=== PATIENT | male | born 1955 | race Caucasian/White ===

== ENCOUNTER 2020-11-09 11:57 | Inpatient (IN) | payer MEDICAID ==
[2020-11-09] MEDS ORDERED: Nitroglycerin 0.4 MG Tab.SL SL PRN (12:01)
[2020-11-09] MEDS ORDERED: Morphine 4 MG/ML Syringe IVPUSH PRN (12:01)
[2020-11-09] MEDS ORDERED: Aspirin 81 MG Tab.Chew PO ONE (12:01)
--- NOTE | 2020-11-09 12:36 | CR ---
CHEST: Portable 11/01/2020 at 12:21 PM CLINICAL HISTORY:Chest pain COMPARISON:None FINDINGS: The heart size, pulmonary vascularity and hilar structures are normal. No infiltrate effusion or pneumothorax is seen. IMPRESSION: No acute cardiopulmonary process.
--- NOTE | 2020-11-09 13:05 | EDM.PDOC ---
ED HPI GENERAL MEDICAL PROBLEM - General Chief Complaint: Chest Pain Stated Complaint: CHEST PAIN Time Seen by Provider: 11/09/20 12:01 Source of Information: Reports: Patient, Family, RN Notes Reviewed History Limitations: Reports: No Limitations - History of Present Illness INITIAL COMMENTS - FREE TEXT/NARRATIVE: 65-year-old gentleman presents emergency department chest pressure, he states it started about 2 hours prior vomiting no shortness of breath no diaphoresis he states the pressure started just while he was sitting at the coffee table he has no significant cardiac history his father did have atrial fibrillation but no history of present of years Chest Pain Score (Numeric/FACES): 4 - Related Data Allergies Allergy/AdvReac Type Severity Reaction Status Date / Time No Known Allergies Allergy Verified 11/09/20 12:37 Home Meds: Home Meds DULoxetine [Cymbalta] 90 mg PO DAILY 11/09/20 [History] Past Medical History HEENT History: Reports: Macular Degeneration Cardiovascular History: Reports: Other (See Below) Other Cardiovascular History: rheumatic fever as a child Musculoskeletal History: Reports: Fracture Neurological History: Reports: Migraines Psychiatric History: Reports: Depression - Infectious Disease History Infectious Disease History: Reports: Chicken Pox, Hepatitis C, Measles, Mumps, Rheumatic Fever - Past Surgical History HEENT Surgical History: Reports: Tonsillectomy Social & Family History - Tobacco Use Tobacco Use Status *Q: Heavy Tobacco User Years of Tobacco use: 20 Packs/Tins Daily: 2 - Caffeine Use Caffeine Use: Reports: Coffee - Alcohol Use Days Per Week of Alcohol Use: 7 Number of Drinks Per Day: 6 Total Drinks Per Week: 42 - Recreational Drug Use Recreational Drug Use: No ED ROS GENERAL - Review of Systems Review Of Systems: See Below Constitutional: Reports: No Symptoms HEENT: Reports: No Symptoms Respiratory: Reports: No Symptoms Cardiovascular: Reports: Chest Pain GI/Abdominal: Reports: No Symptoms ED EXAM, GENERAL - Physical Exam Exam: See Below Exam Limited By: No Limitations General Appearance: Alert, WD/WN, No Apparent Distress Respiratory/Chest: No Respiratory Distress, Lungs Clear, Normal Breath Sounds, No Accessory Muscle Use, Chest Non-Tender Cardiovascular: Regular Rate, Rhythm, No Murmur GI/Abdominal: Soft, Non-Tender Extremities: No Pedal Edema #1 Interpretation EKG Date: 11/09/20 Time: 13:05 Rhythm: NSR [place]: Normal P-Wave: Present QRS: Normal ST-T: Normal QT: Normal Comparison: NA - No Prior EKG Course - Vital Signs Last Recorded V/S: Last Vital Signs Temp 95 F L 11/09/20 12:03 Pulse 104 H 11/09/20 12:43 Resp 19 11/09/20 12:43 BP 141/87 H 11/09/20 12:43 Pulse Ox 98 11/09/20 12:43 - Orders/Labs/Meds Orders: Active Orders 24 hr Category Date Time Status Cardiac Monitoring [RC] .As Directed Care 11/09/20 12:01 Active Cardiac Monitoring [RC] STAT Care 11/09/20 14:31 Active Communication Order [RC] Per Unit Routine Care 11/09/20 14:31 Active Communication Order [RC] Per Unit Routine Care 11/09/20 14:31 Active Oxygen Therapy [RC] ASDIRECTED Care 11/09/20 14:31 Active Nothing Per Oral Diet [DIET] Diet 11/09/20 Dinner Active CORONAVIRUS COVID-19 RAPID [MOLEC] Urgent Lab 11/09/20 14:33 Ordered TROPONIN I [CHEM] Stat Lab 11/09/20 20:00 Ordered Heparin Sodium/D5W [Heparin 25,000 Units in D5W 500 ML] Med 11/09/20 14:45 Active 25,000 units in 500 ml IV TITRATE Morphine Med 11/09/20 12:01 Active 4 mg IVPUSH Q10M PRN Nitroglycerin [Nitrostat] Med 11/09/20 12:01 Active 0.4 mg SL Q5M PRN EKG 12 Lead [EK] Stat Ther 11/09/20 12:02 Ordered Medication Orders Heparin Sodium/Dextrose (Heparin 25,000 Units In D5w 500 Ml) 25,000 units in 500 mls @ 17.853 mls/hr IV TITRATE RODNEY; Protocol Morphine Sulfate (Morphine 4 Mg/Ml Syringe) 4 mg IVPUSH Q10M PRN PRN Reason: Chest Pain Stop: 11/10/20 12:01 Nitroglycerin (Nitroglycerin 0.4 Mg Tab.Sl) 0.4 mg SL Q5M PRN PRN Reason: Chest Pain Stop: 11/10/20 12:01 Labs: Laboratory Tests 11/09/20 11/09/20 11/09/20 Range/Units 12:01 12:01 12:01 WBC 9.2 (4.5-11.0) K/uL RBC 4.48 (4.30-5.90) M/uL Hgb 14.5 (12.0-15.0) g/dL Hct 42.9 (40.0-54.0) % MCV 96 (80-98) fL MCH 32 H (27-31) pg MCHC 34 (32-36) % Plt Count 300 (150-400) K/uL Neut % (Auto) 68.4 H (36-66) % Lymph % (Auto) 23.4 L (24-44) % [place] % (Auto) 6.6 H (2-6) % Eos % (Auto) 0.9 L (2-4) % Baso % (Auto) 0.7 (0-1) % PT 10.2 (9.2-10.6) sec INR 1.0 APTT 26.7 (21.4-31.8) sec Sodium 138 L (140-148) mmol/L Potassium 4.0 (3.6-5.2) mmol/L Chloride 102 (100-108) mmol/L Carbon Dioxide 26 (21-32) mmol/L Anion Gap 14.0 (5.0-14.0) mmol/L BUN 10 (7-18) mg/dL Creatinine 1.1 (0.8-1.3) mg/dL Est Cr Clr Drug Dosing 66.50 mL/min Estimated GFR (MDRD) > 60 (>60) Glucose 157 H (74-106) mg/dL Calcium 8.4 L (8.5-10.1) mg/dL Total Bilirubin 0.5 (0.2-1.0) mg/dL AST 75 H (15-37) U/L ALT 40 (12-78) U/L Alkaline Phosphatase 99 (46-116) U/L Troponin I < 0.017 (0.000-0.056) ng/mL Total Protein 6.9 (6.4-8.2) g/dL Albumin 3.6 (3.4-5.0) g/dL Globulin 3.3 (2.3-3.5) g/dL Albumin/Globulin Ratio 1.1 L (1.2-2.2) 11/09/20 Range/Units 13:57 WBC (4.5-11.0) K/uL RBC (4.30-5.90) M/uL Hgb (12.0-15.0) g/dL Hct (40.0-54.0) % MCV (80-98) fL MCH (27-31) pg MCHC (32-36) % Plt Count (150-400) K/uL Neut % (Auto) (36-66) % Lymph % (Auto) (24-44) % [place] % (Auto) (2-6) % Eos % (Auto) (2-4) % Baso % (Auto) (0-1) % PT (9.2-10.6) sec INR APTT (21.4-31.8) sec Sodium (140-148) mmol/L Potassium (3.6-5.2) mmol/L Chloride (100-108) mmol/L Carbon Dioxide (21-32) mmol/L Anion Gap (5.0-14.0) mmol/L BUN (7-18) mg/dL Creatinine (0.8-1.3) mg/dL Est Cr Clr Drug Dosing mL/min Estimated GFR (MDRD) (>60) Glucose (74-106) mg/dL Calcium (8.5-10.1) mg/dL Total Bilirubin (0.2-1.0) mg/dL AST (15-37) U/L ALT (12-78) U/L Alkaline Phosphatase (46-116) U/L Troponin I 0.150 H* (0.000-0.056) ng/mL Total Protein (6.4-8.2) g/dL Albumin (3.4-5.0) g/dL Globulin (2.3-3.5) g/dL Albumin/Globulin Ratio (1.2-2.2) Meds: Medications Generic Name Dose Route Start Last Admin Trade Name Freq PRN Reason Stop Dose Admin Heparin Sodium/Dextrose 25,000 units in 500 mls @ 17.853 mls/hr 11/09/20 14:45 Heparin 25,000 Units In D5w 500 Ml IV TITRATE RODNEY Protocol 12 UNITS/KG/HR Morphine Sulfate 4 mg 11/09/20 12:01 Morphine 4 Mg/Ml Syringe IVPUSH 11/10/20 12:01 Q10M PRN Chest Pain Nitroglycerin 0.4 mg 11/09/20 12:01 Nitroglycerin 0.4 Mg Tab.Sl SL 11/10/20 12:01 Q5M PRN Chest Pain Discontinued Medications Generic Name Dose Route Start Last Admin Trade Name Rj PRN Reason Stop Dose Admin Aspirin 324 mg 11/09/20 12:01 11/09/20 12:39 Aspirin 81 Mg Tab.Chew PO 11/09/20 12:02 324 mg ONETIME ONE Administration Heparin Sodium (Porcine) 4,000 units 11/09/20 14:31 Heparin Sodium 5,000 Units/Ml Vial IVPUSH 11/09/20 14:32 ONETIME ONE Ticagrelor 180 mg 11/09/20 14:31 Ticagrelor 90 Mg Tab PO 11/09/20 14:32 ONETIME ONE - Re-Assessments/Exams Free Text/Narrative Re-Assessment/Exam: 11/09/20 14:38 Second troponin was elevated I did contact [facility] at [address] him on the list possibly tomorrow immediately giving him the morning. Contacted [facility] facilities no beds available at that time. Therefore he will stay in the emergency department be treated as such on oracle specialist he has received aspirin he will receive Brilinta heparin bolus and placed on heparin drip he is chest pain-free at this time we will continue to monitor his symptoms accordingly troponin every 6 hours Departure - Departure Time of Disposition: 14:49 Disposition: Refer to Observation Condition: Fair Clinical Impression: Non-STEMI (non-ST elevated myocardial infarction) Referrals: PCP,Unknown [Primary Care Provider] - Forms: ED Department Discharge Sepsis Event Note (ED) - Evaluation Sepsis Screening Result: No Definite Risk - Focused Exam Vital Signs: Vital Signs Temp Pulse Resp BP Pulse Ox 11/09/20 12:43 104 H 19 141/87 H 98 11/09/20 12:13 105 H 24 H 135/80 99 11/09/20 12:03 95 F L 118 H 23 H 174/102 H 99 - My Orders Last 24 Hours: My Active Orders 11/09/20 12:01 Cardiac Monitoring [RC] .As Directed Morphine 4 mg IVPUSH Q10M PRN Nitroglycerin [Nitrostat] 0.4 mg SL Q5M PRN 11/09/20 12:02 EKG 12 Lead [EK] Stat 11/09/20 14:31 Cardiac Monitoring [RC] STAT Communication Order [RC] Per Unit Routine Communication Order [RC] Per Unit Routine Oxygen Therapy [RC] ASDIRECTED 11/09/20 14:33 CORONAVIRUS COVID-19 RAPID [MOLEC] Urgent 11/09/20 14:45 Heparin Sodium/D5W [Heparin 25,000 Units in D5W 500 ML] 25,000 units in 500 ml IV TITRATE 11/09/20 Dinner Nothing Per Oral Diet [DIET] 11/09/20 20:00 TROPONIN I [CHEM] Stat - Assessment/Plan Last 24 Hours: My Active Orders 11/09/20 12:01 Cardiac Monitoring [RC] .As Directed Morphine 4 mg IVPUSH Q10M PRN Nitroglycerin [Nitrostat] 0.4 mg SL Q5M PRN 11/09/20 12:02 EKG 12 Lead [EK] Stat 11/09/20 14:31 Cardiac Monitoring [RC] STAT Communication Order [RC] Per Unit Routine Communication Order [RC] Per Unit Routine Oxygen Therapy [RC] ASDIRECTED 11/09/20 14:33 CORONAVIRUS COVID-19 RAPID [MOLEC] Urgent 11/09/20 14:45 Heparin Sodium/D5W [Heparin 25,000 Units in D5W 500 ML] 25,000 units in 500 ml IV TITRATE 11/09/20 Dinner Nothing Per Oral Diet [DIET] 11/09/20 20:00 TROPONIN I [CHEM] Stat Plan: Assessment Acuity = acute Site and laterality = non-ST elevation myocardial infarction Etiology = probable underlying coronary artery disease Manifestations = none Location of injury = Home Lab values = CBC CMP unremarkable troponin initially less than 0.017 elevated 0.15, EKG no acute changes chest x-ray unremarkable Plan Have started below that he did receive aspirin he was seen heparin bolus with drip he is chest pain-free at this time because of him to a facility with cardiac services he is going to remain here in the ICU discussed case with hospitalist on-call at 1450 kindly agreed come evaluate patient emergency department for admission hopefully he will be transferred to [facility] tomorrow This note was dictated using [employer] voice recognition software please call with any questions on syntax or grammar.
[2020-11-09] MEDS ORDERED: Ticagrelor 90 MG Tab PO ONE (14:31)
[2020-11-09] MEDS ORDERED: Heparin Sodium 5,000 Units/ML Vial IVPUSH ONE ×2 (14:31→23:56)
--- NOTE | 2020-11-09 15:05 | PCM.HP.2 ---
H&P History of Present Illness - General Date of Service: 11/09/20 Admit Problem/Dx: Admission Diagnosis/Problem Admission Diagnosis/Problem Myocardial infarction Source of Information: Patient, Provider, RN Notes Reviewed History Limitations: Reports: No Limitations - History of Present Illness Initial Comments - Free Text/Narative: Mr. Brown is a 65-year-old gentleman who was admitted through the emergency department with chest pain secondary to a non-ST segment elevation myocardial infarction. This morning he experienced pain in his upper chest radiating to both shoulders associated with symptoms of shortness of breath, nausea, and lightheadedness. He thinks there was also mild diaphoresis. Symptoms started about 9:30 in the morning, he went to the walk-in clinic but was immediately referred to the emergency department. On initial presentation was noted to have a mild sinus tachycardia. Pain resolved spontaneously after about 2 hours. Initial troponin level was normal, follow-up troponin elevated at 0.15. No acute ST segment changes were noted on the EKG. Over the past few weeks he has noted similar pain although not as intense with activity and resolving with rest. His cholesterol status is unknown. He has a [id number] smoking history, but denies a family history of coronary artery disease and also denies a personal history of hypertension and diabetes. He has had no recurrence of his pain while in the emergency department. He has received a bolus of IV heparin and has been started on a continuous drip of heparin. He has received 325 mg of aspirin and a bolus dose of Brilinta. Chest Pain Score (Numeric/FACES): 4 - Related Data Allergies/Adverse Reactions: Allergies Allergy/AdvReac Type Severity Reaction Status Date / Time No Known Allergies Allergy Verified 11/09/20 12:37 Home Medications: Home Meds DULoxetine [Cymbalta] 90 mg PO DAILY 11/09/20 [History] Past Medical History HEENT History: Reports: Macular Degeneration Cardiovascular History: Reports: Other (See Below) Other Cardiovascular History: rheumatic fever as a child Musculoskeletal History: Reports: Fracture Neurological History: Reports: Migraines Psychiatric History: Reports: Depression - Infectious Disease History Infectious Disease History: Reports: Chicken Pox, Hepatitis C, Measles, Mumps, Rheumatic Fever - Past Surgical History HEENT Surgical History: Reports: Tonsillectomy Social & Family History - Tobacco Use Tobacco Use Status *Q: Heavy Tobacco User Years of Tobacco use: 20 Packs/Tins Daily: 2 - Caffeine Use Caffeine Use: Reports: Coffee - Alcohol Use Days Per Week of Alcohol Use: 7 Number of Drinks Per Day: 6 Total Drinks Per Week: 42 - Recreational Drug Use Recreational Drug Use: No H&P Review of Systems - Review of Systems: Review Of Systems: See Below General: Reports: No Symptoms HEENT: Reports: No Symptoms Pulmonary: Reports: Shortness of Breath. Denies: Wheezing, Pleuritic Chest Pain, Cough, Sputum Cardiovascular: Reports: Chest Pain, Dyspnea on Exertion, Lightheadedness. Denies: Orthopnea, PND, Edema Gastrointestinal: Reports: Nausea. Denies: Abdominal Pain, Constipation, Diarrhea, Decreased Appetite, Difficulty Swallowing, Distension, Hematemesis, Hematochezia, Melena, Vomiting Genitourinary: Reports: No Symptoms Musculoskeletal: Reports: No Symptoms Skin: Reports: No Symptoms Psychiatric: Reports: No Symptoms Neurological: Reports: No Symptoms Hematologic/Lymphatic: Reports: No Symptoms Immunologic: Reports: No Symptoms Exam - Exam Exam: See Below - Vital Signs Vital Signs: Last Vital Signs Temp 95 F L 11/09/20 12:03 Pulse 104 H 11/09/20 12:43 Resp 19 11/09/20 12:43 BP 141/87 H 11/09/20 12:43 Pulse Ox 98 11/09/20 12:43 Weight: 164 lb - Exam Quality Assessment: DVT Prophylaxis General: Alert, Oriented, Cooperative HEENT: Conjunctiva Clear, Hearing Intact, Mucosa Moist & [place], Normal Nasal Septum, Posterior Pharynx Clear, Pupils Equal Neck: Supple, Trachea Midline, +2 Carotid Pulse wo Bruit Lungs: Clear to Auscultation, Normal Respiratory Effort Cardiovascular: Regular Rate, Regular Rhythm, Normal S1, Normal S2. No: Systolic Murmur, Diastolic Murmur GI/Abdominal Exam: Soft, Non-Tender, No Organomegaly, No Distention Back Exam: Normal Inspection, Full Range of Motion Extremities: Non-Tender, No Pedal Edema Skin: Warm, Dry, Intact Neurological: Cranial Nerves Intact, Strength Equal Bilateral, Normal Speech, Normal Tone, Sensation Intact. No: Focal Deficit Neuro Extensive - Mental Status: Alert, Oriented x3, Normal Mood/Affect, Normal Cognition, Memory Intact - Patient Data Lab Results Last 24 hrs: Laboratory Results - last 24 hr 11/09/20 11/09/20 11/09/20 Range/Units 12:01 12:01 12:01 WBC 9.2 (4.5-11.0) K/uL RBC 4.48 (4.30-5.90) M/uL Hgb 14.5 (12.0-15.0) g/dL Hct 42.9 (40.0-54.0) % MCV 96 (80-98) fL MCH 32 H (27-31) pg MCHC 34 (32-36) % Plt Count 300 (150-400) K/uL Neut % (Auto) 68.4 H (36-66) % Lymph % (Auto) 23.4 L (24-44) % [place] % (Auto) 6.6 H (2-6) % Eos % (Auto) 0.9 L (2-4) % Baso % (Auto) 0.7 (0-1) % PT 10.2 (9.2-10.6) sec INR 1.0 APTT 26.7 (21.4-31.8) sec Sodium 138 L (140-148) mmol/L Potassium 4.0 (3.6-5.2) mmol/L Chloride 102 (100-108) mmol/L Carbon Dioxide 26 (21-32) mmol/L Anion Gap 14.0 (5.0-14.0) mmol/L BUN 10 (7-18) mg/dL Creatinine 1.1 (0.8-1.3) mg/dL Est Cr Clr Drug Dosing 66.50 mL/min Estimated GFR (MDRD) > 60 (>60) Glucose 157 H (74-106) mg/dL Calcium 8.4 L (8.5-10.1) mg/dL Total Bilirubin 0.5 (0.2-1.0) mg/dL AST 75 H (15-37) U/L ALT 40 (12-78) U/L Alkaline Phosphatase 99 (46-116) U/L Troponin I < 0.017 (0.000-0.056) ng/mL Total Protein 6.9 (6.4-8.2) g/dL Albumin 3.6 (3.4-5.0) g/dL Globulin 3.3 (2.3-3.5) g/dL Albumin/Globulin Ratio 1.1 L (1.2-2.2) 11/09/20 Range/Units 13:57 WBC (4.5-11.0) K/uL RBC (4.30-5.90) M/uL Hgb (12.0-15.0) g/dL Hct (40.0-54.0) % MCV (80-98) fL MCH (27-31) pg MCHC (32-36) % Plt Count (150-400) K/uL Neut % (Auto) (36-66) % Lymph % (Auto) (24-44) % [place] % (Auto) (2-6) % Eos % (Auto) (2-4) % Baso % (Auto) (0-1) % PT (9.2-10.6) sec INR APTT (21.4-31.8) sec Sodium (140-148) mmol/L Potassium (3.6-5.2) mmol/L Chloride (100-108) mmol/L Carbon Dioxide (21-32) mmol/L Anion Gap (5.0-14.0) mmol/L BUN (7-18) mg/dL Creatinine (0.8-1.3) mg/dL Est Cr Clr Drug Dosing mL/min Estimated GFR (MDRD) (>60) Glucose (74-106) mg/dL Calcium (8.5-10.1) mg/dL Total Bilirubin (0.2-1.0) mg/dL AST (15-37) U/L ALT (12-78) U/L Alkaline Phosphatase (46-116) U/L Troponin I 0.150 H* (0.000-0.056) ng/mL Total Protein (6.4-8.2) g/dL Albumin (3.4-5.0) g/dL Globulin (2.3-3.5) g/dL Albumin/Globulin Ratio (1.2-2.2) Result Diagrams: 11/09/20 12:01 11/09/20 12:01 Sepsis Event Note - Evaluation Sepsis Screening Result: No Definite Risk - Focused Exam Vital Signs: Vital Signs Temp Pulse Resp BP Pulse Ox 11/09/20 12:43 104 H 19 141/87 H 98 11/09/20 12:13 105 H 24 H 135/80 99 11/09/20 12:03 95 F L 118 H 23 H 174/102 H 99 *Q Meaningful Use (ADM) - VTE *Q VTE Pharmacological Contraindications *Q: High INR Value - VTE Risk Assess *Q Each Risk Factor Represents 1 Point: Acute myocardial infarction Total Score 1 Point Risk Factors: 1 Each Risk Factor Represents 2 Points: Age 60 - 74 Years Total Score 2 Point Risk Factors: 2 Each Risk Factor Represents 3 Points: None Total Score 3 Point Risk Factors: 0 Each Risk Factor Represents 5 Points: None Total Score 5 Point Risk Factors: 0 Venous Thromboembolism Risk Factor Score *Q: 3 Problem List Initiated/Reviewed/Updated: Yes Orders Last 24hrs: Active Orders 24 hr Category Date Time Status Patient Status Manage Transfer [TRANSFER] Routine ADT 11/09/20 14:56 Ordered Cardiac Monitoring [RC] .As Directed Care 11/09/20 12:01 Active Cardiac Monitoring [RC] STAT Care 11/09/20 14:31 Active Communication Order [RC] Per Unit Routine Care 11/09/20 14:31 Active Communication Order [RC] Per Unit Routine Care 11/09/20 14:31 Active Oxygen Therapy [RC] ASDIRECTED Care 11/09/20 14:31 Active Nothing Per Oral Diet [DIET] Diet 11/09/20 Dinner Active CORONAVIRUS COVID-19 RAPID [MOLEC] Urgent Lab 11/09/20 14:33 Ordered TROPONIN I [CHEM] Stat Lab 11/09/20 20:00 Ordered Heparin Sodium/D5W [Heparin 25,000 Units in D5W 500 ML] Med 11/09/20 14:45 Active 25,000 units in 500 ml IV TITRATE Morphine Med 11/09/20 12:01 Active 4 mg IVPUSH Q10M PRN Nitroglycerin [Nitrostat] Med 11/09/20 12:01 Active 0.4 mg SL Q5M PRN Resuscitation Status Routine Resus Stat 11/09/20 15:00 Ordered EKG 12 Lead [EK] Stat Ther 11/09/20 12:02 Ordered Medication Orders Heparin Sodium/Dextrose (Heparin 25,000 Units In D5w 500 Ml) 25,000 units in 500 mls @ 17.853 mls/hr IV TITRATE RODNEY; Protocol Morphine Sulfate (Morphine 4 Mg/Ml Syringe) 4 mg IVPUSH Q10M PRN PRN Reason: Chest Pain Stop: 11/10/20 12:01 Nitroglycerin (Nitroglycerin 0.4 Mg Tab.Sl) 0.4 mg SL Q5M PRN PRN Reason: Chest Pain Stop: 11/10/20 12:01 Assessment/Plan Comment:: ASSESSMENT AND PLAN NON-ST SEGMENT ELEVATION MYOCARDIAL INFARCTION-2 hours of upper chest pain radiating to both shoulders this morning. History of similar symptoms with exertion over the past several weeks. Initial troponin level was normal, 2-hour follow-up elevated at 0.15. His main risk factor is a 56-kuxs-oagn smoking history, cholesterol status is unknown. He has been pain-free while in the emergency department with no further symptoms of chest pain. -Bolus dose of heparin given in the emergency department, now on continuous infusion, continue per protocol -Brilinta 180 mg given in the emergency department, continue 90 mg every 12 hours -Aspirin 324 mg given in the emergency department, continue 81 mg p.o. daily -Serial troponin levels -Crestor 20 mg p.o. nightly -Lipid profile in a.m. -N.p.o. after midnight -Plan transfer to [facility] when a bed is available -Encourage smoking cessation MAINTENANCE ISSUES -DVT prophylaxis; heparin as above -GI prophylaxis; not indicated -[place]zagu[place]re catheter; not indicated -Nutrition; cardiac diet, n.p.o. after midnight CODE STATUS-FULL CODE ADMISSION STATUS-patient will be admitted to inpatient status, expect at least a 2 night hospital stay for evaluation and management of problems as outlined above. At the time of this admission I do not reasonably expected evaluation and management of this problem will require more than a 96 hour hospital stay. DISPOSITION-anticipate discharge to home after the hospital stay. PRIMARY CARE PROVIDER-Dr. Gordon - Mortality Measure Prognosis:: Good
[2020-11-09] MEDS: Heparin Sodium/D5W 25,000 UNITS/500 ML BAG IV SCH (15:15)
[2020-11-09] MEDS ORDERED: Polyethylene Glycol 3350 Powder 17 GM Packet PO PRN (16:04)
[2020-11-09] MEDS ORDERED: Sodium Chloride 0.9% 10 ML Syringe FLUSH PRN (16:04)
[2020-11-09] MEDS ORDERED: Ondansetron 4 MG/2 ML SDV IV PRN (16:04)
[2020-11-09] MEDS ORDERED: Morphine 2 MG/ML SYRINGE IVPUSH PRN (16:04)
[2020-11-09] MEDS: Nicotine 21 MG/24 Hr Patch TRDERM SCH (18:30)
[2020-11-09] MEDS: Ticagrelor 90 MG Tab PO SCH (20:49)
[2020-11-09] MEDS: Rosuvastatin 10 MG Tab PO SCH (20:49)
[2020-11-10] MEDS ORDERED: Heparin Sodium 5,000 Units/ML Vial IVPUSH ONE (07:33)
[2020-11-10] MEDS: Ticagrelor 90 MG Tab PO SCH ×2 (08:49→21:39)
[2020-11-10] MEDS: Acetaminophen 325 MG Tab PO PRN ×2 (08:49→14:30)
[2020-11-10] MEDS: Aspirin 81 MG Tab.Chew PO SCH (08:49)
[2020-11-10] MEDS: Nicotine 21 MG/24 Hr Patch TRDERM SCH (08:50)
[2020-11-10] MEDS: DULoxetine 30 MG Cap PO SCH (08:50)
[2020-11-10] MEDS ORDERED: Non-Formulary Medication 1 Each (Duloxetine [Cymbalta] 60 MG Cap) PO SCH (09:00)
[2020-11-10] MEDS: Heparin Sodium/D5W 25,000 UNITS/500 ML BAG IV SCH (14:33)
--- NOTE | 2020-11-10 15:31 | PCM.PN ---
- General Info Date of Service: 11/10/20 Subjective Update: Mr. Brown has been stable through the night and during the first part of the day today. He denies any symptoms of chest pain or pressure. Troponin level peaked last night at 0.59 and has been lower this morning and again this afternoon. He remains on IV heparin pending transfer for cardiac evaluation. No beds currently available but hopefully he will be able to be sent to [facility] later today. Functional Status: Reports: Tolerating Diet, Urinating - Review of Systems General: Reports: No Symptoms Pulmonary: Reports: No Symptoms Cardiovascular: Reports: No Symptoms Gastrointestinal: Reports: No Symptoms Genitourinary: Reports: No Symptoms - Patient Data Vitals - Most Recent: Last Vital Signs Temp 97.7 F 11/10/20 14:43 Pulse 92 11/10/20 14:43 Resp 22 H 11/10/20 14:43 BP 166/106 H 11/10/20 14:43 Pulse Ox 100 11/10/20 14:43 Weight - Most Recent: 173 lb 4.8 oz I&O - Last 24 Hours: Intake & Output 11/10/20 11/10/20 11/10/20 06:59 14:59 22:59 Intake Total 225 300 Output Total 900 850 Balance -675 550 Lab Results Last 24 Hours: Laboratory Results - last 24 hr 11/09/20 11/09/20 11/09/20 Range/Units 15:47 20:00 23:21 WBC (4.5-11.0) K/uL RBC (4.30-5.90) M/uL Hgb (12.0-15.0) g/dL Hct (40.0-54.0) % MCV (80-98) fL MCH (27-31) pg MCHC (32-36) % Plt Count (150-400) K/uL Neut % (Auto) (36-66) % Lymph % (Auto) (24-44) % [facility] % (Auto) (2-6) % Eos % (Auto) (2-4) % Baso % (Auto) (0-1) % APTT 40.5 H (21.4-31.8) sec Sodium (140-148) mmol/L Potassium (3.6-5.2) mmol/L Chloride (100-108) mmol/L Carbon Dioxide (21-32) mmol/L Anion Gap (5.0-14.0) mmol/L BUN (7-18) mg/dL Creatinine (0.8-1.3) mg/dL Est Cr Clr Drug Dosing mL/min Estimated GFR (MDRD) (>60) Glucose (74-106) mg/dL Calcium (8.5-10.1) mg/dL Magnesium (1.8-2.4) mg/dL Troponin I 0.590 H* (0.000-0.056) ng/mL Triglycerides (15-150) mg/dL Cholesterol (0-200) mg/dL LDL Cholesterol Direct (0-100) mg/dL HDL Cholesterol (40-60) mg/dL SARS CoV-2 RNA Rapid TEN Negative 11/10/20 11/10/20 11/10/20 Range/Units 05:26 05:26 06:32 WBC 10.2 (4.5-11.0) K/uL RBC 4.35 (4.30-5.90) M/uL Hgb 14.4 (12.0-15.0) g/dL Hct 41.0 (40.0-54.0) % MCV 94 (80-98) fL MCH 33 H (27-31) pg MCHC 35 (32-36) % Plt Count 275 (150-400) K/uL Neut % (Auto) 74.9 H (36-66) % Lymph % (Auto) 15.5 L (24-44) % [facility] % (Auto) 8.1 H (2-6) % Eos % (Auto) 1.1 L (2-4) % Baso % (Auto) 0.4 (0-1) % APTT 47.1 H (21.4-31.8) sec Sodium 136 L (140-148) mmol/L Potassium 3.6 (3.6-5.2) mmol/L Chloride 101 (100-108) mmol/L Carbon Dioxide 27 (21-32) mmol/L Anion Gap 11.6 (5.0-14.0) mmol/L BUN 10 (7-18) mg/dL Creatinine 0.9 (0.8-1.3) mg/dL Est Cr Clr Drug Dosing 84.01 mL/min Estimated GFR (MDRD) > 60 (>60) Glucose 105 (74-106) mg/dL Calcium 8.5 (8.5-10.1) mg/dL Magnesium 1.9 (1.8-2.4) mg/dL Troponin I 0.245 H* (0.000-0.056) ng/mL Triglycerides 90 (15-150) mg/dL Cholesterol 143 (0-200) mg/dL LDL Cholesterol Direct 75 (0-100) mg/dL HDL Cholesterol 61 H (40-60) mg/dL SARS CoV-2 RNA Rapid TEN 11/10/20 11/10/20 Range/Units 13:38 14:17 WBC (4.5-11.0) K/uL RBC (4.30-5.90) M/uL Hgb (12.0-15.0) g/dL Hct (40.0-54.0) % MCV (80-98) fL MCH (27-31) pg MCHC (32-36) % Plt Count (150-400) K/uL Neut % (Auto) (36-66) % Lymph % (Auto) (24-44) % [facility] % (Auto) (2-6) % Eos % (Auto) (2-4) % Baso % (Auto) (0-1) % APTT 51.9 H (21.4-31.8) sec Sodium (140-148) mmol/L Potassium (3.6-5.2) mmol/L Chloride (100-108) mmol/L Carbon Dioxide (21-32) mmol/L Anion Gap (5.0-14.0) mmol/L BUN (7-18) mg/dL Creatinine (0.8-1.3) mg/dL Est Cr Clr Drug Dosing mL/min Estimated GFR (MDRD) (>60) Glucose (74-106) mg/dL Calcium (8.5-10.1) mg/dL Magnesium (1.8-2.4) mg/dL Troponin I 0.128 H* (0.000-0.056) ng/mL Triglycerides (15-150) mg/dL Cholesterol (0-200) mg/dL LDL Cholesterol Direct (0-100) mg/dL HDL Cholesterol (40-60) mg/dL SARS CoV-2 RNA Rapid TEN Med Orders - Current: Current Medications Acetaminophen (Acetaminophen 325 Mg Tab) 650 mg PO Q4H PRN PRN Reason: Pain (Mild 1-3)/fever Last Admin: 11/10/20 14:30 Dose: 650 mg Documented by: Aspirin (Aspirin 81 Mg Tab.Chew) 81 mg PO DAILY [facility] Last Admin: 11/10/20 08:49 Dose: 81 mg Documented by: Duloxetine HCl (Duloxetine 30 Mg Cap) 90 mg PO DAILY [facility] Last Admin: 11/10/20 08:50 Dose: 90 mg Documented by: Heparin Sodium/Dextrose (Heparin 25,000 Units In D5w 500 Ml) 25,000 units in 500 mls @ 17.853 mls/hr IV TITRATE [facility]; Protocol Last Admin: 11/10/20 14:33 Dose: 16 units/kg/hr, 23.804 mls/hr Documented by: Morphine Sulfate (Morphine 2 Mg/Ml Syringe) 2 mg IVPUSH Q2H PRN PRN Reason: Pain (severe 7-10) Nicotine (Nicotine 21 Mg/24 Hr Patch) 21 mg TRDERM DAILY [facility] Last Admin: 11/10/20 08:50 Dose: 21 mg Documented by: Ondansetron HCl (Ondansetron 4 Mg/2 Ml Sdv) 4 mg IV Q4H PRN PRN Reason: Nausea/Vomiting Polyethylene Glycol (Polyethylene Glycol 3350 Powder 17 Gm Packet) 17 gm PO DAILY PRN PRN Reason: Constipation Rosuvastatin Calcium (Rosuvastatin 10 Mg Tab) 20 mg PO BEDTIME [facility] Last Admin: 11/09/20 20:49 Dose: 20 mg Documented by: Sodium Chloride (Sodium Chloride 0.9% 10 Ml Syringe) 10 ml FLUSH ASDIRECTED PRN PRN Reason: Keep Vein Open Ticagrelor (Ticagrelor 90 Mg Tab) 90 mg PO BID [facility] Last Admin: 11/10/20 08:49 Dose: 90 mg Documented by: Discontinued Medications Aspirin (Aspirin 81 Mg Tab.Chew) 324 mg PO ONETIME ONE Stop: 11/09/20 12:02 Last Admin: 11/09/20 12:39 Dose: 324 mg Documented by: Heparin Sodium (Porcine) (Heparin Sodium 5,000 Units/Ml Vial) 4,000 units IVPUSH ONETIME ONE Stop: 11/09/20 14:32 Last Admin: 11/09/20 15:03 Dose: 4,000 units Documented by: Heparin Sodium (Porcine) (Heparin Sodium 5,000 Units/Ml Vial) 1,000 units IVPUSH .BOLUS ONE Stop: 11/09/20 23:57 Last Admin: 11/10/20 00:09 Dose: 1,000 units Documented by: Heparin Sodium (Porcine) (Heparin Sodium 5,000 Units/Ml Vial) 1,000 units IVPU SH .BOLUS ONE Stop: 11/10/20 07:34 Last Admin: 11/10/20 07:44 Dose: 1,000 units Documented by: Morphine Sulfate (Morphine 4 Mg/Ml Syringe) 4 mg IVPUSH Q10M PRN PRN Reason: Chest Pain Stop: 11/10/20 12:01 Nitroglycerin (Nitroglycerin 0.4 Mg Tab.Sl) 0.4 mg SL Q5M PRN PRN Reason: Chest Pain Stop: 11/10/20 12:01 Ticagrelor (Ticagrelor 90 Mg Tab) 180 mg PO ONETIME ONE Stop: 11/09/20 14:32 Last Admin: 11/09/20 15:02 Dose: 180 mg Documented by: - Exam Quality Assessment: DVT Prophylaxis General: Alert, Oriented, Cooperative, No Acute Distress Lungs: Clear to Auscultation, Normal Respiratory Effort Cardiovascular: Regular Rate, Regular Rhythm, No Murmurs GI/Abdominal Exam: Soft, Non-Tender, No Organomegaly, No Distention Extremities: Non-Tender, No Pedal Edema - Patient Data Lab Results Last 24 hrs: Laboratory Results - last 24 hr 11/09/20 11/09/20 11/09/20 Range/Units 15:47 20:00 23:21 WBC (4.5-11.0) K/uL RBC (4.30-5.90) M/uL Hgb (12.0-15.0) g/dL Hct (40.0-54.0) % MCV (80-98) fL MCH (27-31) pg MCHC (32-36) % Plt Count (150-400) K/uL Neut % (Auto) (36-66) % Lymph % (Auto) (24-44) % [facility] % (Auto) (2-6) % Eos % (Auto) (2-4) % Baso % (Auto) (0-1) % APTT 40.5 H (21.4-31.8) sec Sodium (140-148) mmol/L Potassium (3.6-5.2) mmol/L Chloride (100-108) mmol/L Carbon Dioxide (21-32) mmol/L Anion Gap (5.0-14.0) mmol/L BUN (7-18) mg/dL Creatinine (0.8-1.3) mg/dL Est Cr Clr Drug Dosing mL/min Estimated GFR (MDRD) (>60) Glucose (74-106) mg/dL Calcium (8.5-10.1) mg/dL Magnesium (1.8-2.4) mg/dL Troponin I 0.590 H* (0.000-0.056) ng/mL Triglycerides (15-150) mg/dL Cholesterol (0-200) mg/dL LDL Cholesterol Direct (0-100) mg/dL HDL Cholesterol (40-60) mg/dL SARS CoV-2 RNA Rapid TEN Negative 11/10/20 11/10/20 11/10/20 Range/Units 05:26 05:26 06:32 WBC 10.2 (4.5-11.0) K/uL RBC 4.35 (4.30-5.90) M/uL Hgb 14.4 (12.0-15.0) g/dL Hct 41.0 (40.0-54.0) % MCV 94 (80-98) fL MCH 33 H (27-31) pg MCHC 35 (32-36) % Plt Count 275 (150-400) K/uL Neut % (Auto) 74.9 H (36-66) % Lymph % (Auto) 15.5 L (24-44) % [facility] % (Auto) 8.1 H (2-6) % Eos % (Auto) 1.1 L (2-4) % Baso % (Auto) 0.4 (0-1) % APTT 47.1 H (21.4-31.8) sec Sodium 136 L (140-148) mmol/L Potassium 3.6 (3.6-5.2) mmol/L Chloride 101 (100-108) mmol/L Carbon Dioxide 27 (21-32) mmol/L Anion Gap 11.6 (5.0-14.0) mmol/L BUN 10 (7-18) mg/dL Creatinine 0.9 (0.8-1.3) mg/dL Est Cr Clr Drug Dosing 84.01 mL/min Estimated GFR (MDRD) > 60 (>60) Glucose 105 (74-106) mg/dL Calcium 8.5 (8.5-10.1) mg/dL Magnesium 1.9 (1.8-2.4) mg/dL Troponin I 0.245 H* (0.000-0.056) ng/mL Triglycerides 90 (15-150) mg/dL Cholesterol 143 (0-200) mg/dL LDL Cholesterol Direct 75 (0-100) mg/dL HDL Cholesterol 61 H (40-60) mg/dL SARS CoV-2 RNA Rapid TEN 11/10/20 11/10/20 Range/Units 13:38 14:17 WBC (4.5-11.0) K/uL RBC (4.30-5.90) M/uL Hgb (12.0-15.0) g/dL Hct (40.0-54.0) % MCV (80-98) fL MCH (27-31) pg MCHC (32-36) % Plt Count (150-400) K/uL Neut % (Auto) (36-66) % Lymph % (Auto) (24-44) % [facility] % (Auto) (2-6) % Eos % (Auto) (2-4) % Baso % (Auto) (0-1) % APTT 51.9 H (21.4-31.8) sec Sodium (140-148) mmol/L Potassium (3.6-5.2) mmol/L Chloride (100-108) mmol/L Carbon Dioxide (21-32) mmol/L Anion Gap (5.0-14.0) mmol/L BUN (7-18) mg/dL Creatinine (0.8-1.3) mg/dL Est Cr Clr Drug Dosing mL/min Estimated GFR (MDRD) (>60) Glucose (74-106) mg/dL Calcium (8.5-10.1) mg/dL Magnesium (1.8-2.4) mg/dL Troponin I 0.128 H* (0.000-0.056) ng/mL Triglycerides (15-150) mg/dL Cholesterol (0-200) mg/dL LDL Cholesterol Direct (0-100) mg/dL HDL Cholesterol (40-60) mg/dL SARS CoV-2 RNA Rapid TEN Result Diagrams: 11/10/20 05:26 11/10/20 05:26 Sepsis Event Note - Evaluation Sepsis Screening Result: No Definite Risk - Focused Exam Vital Signs: Vital Signs Temp Pulse Resp BP Pulse Ox 11/10/20 14:43 97.7 F 92 22 H 166/106 H 100 11/10/20 13:00 102 H 23 H 149/92 H 95 11/10/20 11:00 93 15 149/108 H 99 11/10/20 09:00 86 13 155/88 H 99 11/10/20 07:00 97.7 F 77 16 140/103 H 100 11/10/20 05:00 20 145/89 H 99 - Problem List Review Problem List Initiated/Reviewed/Updated: Yes - My Orders Last 24 Hours: My Active Orders 11/09/20 15:00 Resuscitation Status Routine 11/09/20 16:04 Acetaminophen [TylenoL] 650 mg PO Q4H PRN Morphine 2 mg IVPUSH Q2H PRN Ondansetron [Zofran] 4 mg IV Q4H PRN Sodium Chloride 0.9% [Saline Flush] 10 ml FLUSH ASDIRECTED PRN polyethylene glycoL 3350 [MiraLAX] 17 gm PO DAILY PRN 11/09/20 16:04 Patient Status [ADT] Routine Cardiac Monitoring [RC] Q6H Height and Weight [RC] DAILY Intake and Output [RC] QSHIFT Notify Provider Vital Signs [RC] ASDIRECTED Oxygen Therapy [RC] PRN Up to Chair [RC] QID VTE/DVT Education [RC] Per Unit Routine Saline Lock Insert [OM.PC] Routine VTE Pharmacological Contraindications [AST] Per Unit Routine 11/09/20 18:15 Nicotine [Habitrol] 21 mg TRDERM DAILY 11/09/20 21:00 Rosuvastatin [Crestor] 20 mg PO BEDTIME Ticagrelor [Brilinta] 90 mg PO BID 11/10/20 Breakfast Nothing per Oral After Midnight Diet [DIET] 11/10/20 09:00 Aspirin 81 mg PO DAILY DULoxetine [Cymbalta] 90 mg PO DAILY 11/10/20 20:15 PTT,PARTIAL THROMBOPLSTIN TIME [COAG] Routine 11/11/20 05:00 TROPONIN I [CHEM] Timed - Plan Plan:: ASSESSMENT AND PLAN NON-ST SEGMENT ELEVATION MYOCARDIAL INFARCTION-stable since admission with no recurrence of chest pain. Troponin peaked last night and has come down since then -Continue IV heparin infusion -Continue Brilinta 90 mg every 12 hours -Aspirin continue 81 mg p.o. daily -Serial troponin levels -Crestor 20 mg p.o. nightly -Plan transfer to [facility] when a bed is available -Encourage smoking cessation MAINTENANCE ISSUES -DVT prophylaxis; heparin as above -GI prophylaxis; not indicated -Izaguirre catheter; not indicated -Nutrition; cardiac diet, n.p.o. after midnight CODE STATUS-FULL CODE ADMISSION STATUS-patient will be admitted to inpatient status, expect at least a 2 night hospital stay for evaluation and management of problems as outlined above. At the time of this admission I do not reasonably expected evaluation and management of this problem will require more than a 96 hour hospital stay. DISPOSITION-anticipate discharge to home after the hospital stay. PRIMARY CARE PROVIDER-Dr. Gordon
--- NOTE | 2020-11-10 15:41 | PCM.DCSUM1 ---
Discharge Summary - Hospital Course Brief History: Mr. Brown is a 65-year-old gentleman who was admitted through the emergency department with chest pain secondary to non-ST segment elevation myocardial infarction - Discharge Data Discharge Date: 11/10/20 Discharge Disposition: DC/Tfer to Acute Hospital 02 Condition: Stable - Referral to Home Health Primary Care Physician: Donta Gordon MD - Discharge Diagnosis/Problem(s) (1) Nicotine dependence SNOMED Code(s): 22445050 ICD Code: F17.200 - NICOTINE DEPENDENCE, UNSPECIFIED, UNCOMPLICATED Status: Acute Current Visit: Yes (2) Non-STEMI (non-ST elevated myocardial infarction) SNOMED Code(s): 58061734 ICD Code: I21.4 - NON-ST ELEVATION (NSTEMI) MYOCARDIAL INFARCTION Status: Acute Current Visit: Yes - Patient Summary/Data Hospital Course: Mr. Brown is a 65-year-old gentleman who was admitted through the emergency department with chest pain secondary to a non-ST segment elevation myocardial infarction. He experienced pain in his upper chest radiating to both shoulders associated with symptoms of shortness of breath, nausea, and lightheadedness. He thinks there was also mild diaphoresis. Symptoms started about 9:30 in the morning, he went to the walk-in clinic but was immediately referred to the emergency department. On initial presentation was noted to have a mild sinus tachycardia. Pain resolved spontaneously after about 2 hours. Initial troponin level was normal, follow-up troponin elevated at 0.15. No acute ST segment changes were noted on the EKG. Over the past few weeks he has noted similar pain although not as intense with activity and resolving with rest. His cholesterol status is unknown. He has a [id number] smoking history, but denies a family history of coronary artery disease and also denies a personal history of hypertension and diabetes. He has had no recurrence of his pain while in the emergency department. He has received a bolus of IV heparin and has been started on a continuous drip of heparin. He has received 325 mg of aspirin and a bolus dose of Brilinta. After admission he was continued on continuous heparin infusion as well as oral Brilinta and aspirin. He was also started on Crestor 20 mg p.o. nightly. He remained pain free throughout the rest of his hospital stay. Follow-up troponin levels did show a peak in the evening of admission at 0.59, with a decrease in troponin levels on follow-up. He will be transferred to tertiary care center for further cardiac evaluation and management. Activity will be as tolerated and he will be on the heart healthy diet. - Patient Instructions Diet: Heart Healthy Diet Activity: As Tolerated Other/Special Instructions: Will be transferred to [facility] in [facility] via [facility] ambulance - Discharge Plan *PRESCRIPTION DRUG MONITORING PROGRAM REVIEWED*: Not Applicable *COPY OF PRESCRIPTION DRUG MONITORING REPORT IN PATIENT JAMES: Not Applicable Home Medications: Home Meds DULoxetine [Cymbalta] 90 mg PO DAILY 11/09/20 [History] Aspirin 81 mg PO DAILY tab.chew 11/10/20 [Rx] Nicotine [Habitrol] 21 mg TRDERM DAILY patch 11/10/20 [Rx] Rosuvastatin [Crestor] 20 mg PO BEDTIME tablet 11/10/20 [Rx] Ticagrelor [Brilinta] 90 mg PO BID tablet 11/10/20 [Rx] Referrals: Donta Gordon MD [Primary Care Provider] - - Discharge Summary/Plan Comment DC Time >30 min.: No Total # of Minutes for Discharge Time: 20 - Patient Data Vitals - Most Recent: Last Vital Signs Temp 97.7 F 11/10/20 14:43 Pulse 92 11/10/20 14:43 Resp 22 H 11/10/20 14:43 BP 166/106 H 11/10/20 14:43 Pulse Ox 100 11/10/20 14:43 Weight - Most Recent: 173 lb 4.8 oz I&O - Last 24 hours: Intake & Output 11/10/20 11/10/20 11/10/20 06:59 14:59 22:59 Intake Total 225 300 Output Total 900 850 Balance -675 -550 Lab Results - Last 24 hrs: Laboratory Results - last 24 hr 11/09/20 11/09/20 11/09/20 Range/Units 15:47 20:00 23:21 WBC (4.5-11.0) K/uL RBC (4.30-5.90) M/uL Hgb (12.0-15.0) g/dL Hct (40.0-54.0) % MCV (80-98) fL MCH (27-31) pg MCHC (32-36) % Plt Count (150-400) K/uL Neut % (Auto) (36-66) % Lymph % (Auto) (24-44) % [facility] % (Auto) (2-6) % Eos % (Auto) (2-4) % Baso % (Auto) (0-1) % APTT 40.5 H (21.4-31.8) sec Sodium (140-148) mmol/L Potassium (3.6-5.2) mmol/L Chloride (100-108) mmol/L Carbon Dioxide (21-32) mmol/L Anion Gap (5.0-14.0) mmol/L BUN (7-18) mg/dL Creatinine (0.8-1.3) mg/dL Est Cr Clr Drug Dosing mL/min Estimated GFR (MDRD) (>60) Glucose (74-106) mg/dL Calcium (8.5-10.1) mg/dL Magnesium (1.8-2.4) mg/dL Troponin I 0.590 H* (0.000-0.056) ng/mL Triglycerides (15-150) mg/dL Cholesterol (0-200) mg/dL LDL Cholesterol Direct (0-100) mg/dL HDL Cholesterol (40-60) mg/dL SARS CoV-2 RNA Rapid TEN Negative 11/10/20 11/10/20 11/10/20 Range/Units 05:26 05:26 06:32 WBC 10.2 (4.5-11.0) K/uL RBC 4.35 (4.30-5.90) M/uL Hgb 14.4 (12.0-15.0) g/dL Hct 41.0 (40.0-54.0) % MCV 94 (80-98) fL MCH 33 H (27-31) pg MCHC 35 (32-36) % Plt Count 275 (150-400) K/uL Neut % (Auto) 74.9 H (36-66) % Lymph % (Auto) 15.5 L (24-44) % [facility] % (Auto) 8.1 H (2-6) % Eos % (Auto) 1.1 L (2-4) % Baso % (Auto) 0.4 (0-1) % APTT 47.1 H (21.4-31.8) sec Sodium 136 L (140-148) mmol/L Potassium 3.6 (3.6-5.2) mmol/L Chloride 101 (100-108) mmol/L Carbon Dioxide 27 (21-32) mmol/L Anion Gap 11.6 (5.0-14.0) mmol/L BUN 10 (7-18) mg/dL Creatinine 0.9 (0.8-1.3) mg/dL Est Cr Clr Drug Dosing 84.01 mL/min Estimated GFR (MDRD) > 60 (>60) Glucose 105 (74-106) mg/dL Calcium 8.5 (8.5-10.1) mg/dL Magnesium 1.9 (1.8-2.4) mg/dL Troponin I 0.245 H* (0.000-0.056) ng/mL Triglycerides 90 (15-150) mg/dL Cholesterol 143 (0-200) mg/dL LDL Cholesterol Direct 75 (0-100) mg/dL HDL Cholesterol 61 H (40-60) mg/dL SARS CoV-2 RNA Rapid TEN 11/10/20 11/10/20 Range/Units 13:38 14:17 WBC (4.5-11.0) K/uL RBC (4.30-5.90) M/uL Hgb (12.0-15.0) g/dL Hct (40.0-54.0) % MCV (80-98) fL MCH (27-31) pg MCHC (32-36) % Plt Count (150-400) K/uL Neut % (Auto) (36-66) % Lymph % (Auto) (24-44) % [facility] % (Auto) (2-6) % Eos % (Auto) (2-4) % Baso % (Auto) (0-1) % APTT 51.9 H (21.4-31.8) sec Sodium (140-148) mmol/L Potassium (3.6-5.2) mmol/L Chloride (100-108) mmol/L Carbon Dioxide (21-32) mmol/L Anion Gap (5.0-14.0) mmol/L BUN (7-18) mg/dL Creatinine (0.8-1.3) mg/dL Est Cr Clr Drug Dosing mL/min Estimated GFR (MDRD) (>60) Glucose (74-106) mg/dL Calcium (8.5-10.1) mg/dL Magnesium (1.8-2.4) mg/dL Troponin I 0.128 H* (0.000-0.056) ng/mL Triglycerides (15-150) mg/dL Cholesterol (0-200) mg/dL LDL Cholesterol Direct (0-100) mg/dL HDL Cholesterol (40-60) mg/dL SARS CoV-2 RNA Rapid TEN Med Orders - Current: Current Medications Acetaminophen (Acetaminophen 325 Mg Tab) 650 mg PO Q4H PRN PRN Reason: Pain (Mild 1-3)/fever Last Admin: 11/10/20 14:30 Dose: 650 mg Documented by: Aspirin (Aspirin 81 Mg Tab.Chew) 81 mg PO DAILY [facility] Last Admin: 11/10/20 08:49 Dose: 81 mg Documented by: Duloxetine HCl (Duloxetine 30 Mg Cap) 90 mg PO DAILY [facility] Last Admin: 11/10/20 08:50 Dose: 90 mg Documented by: Heparin Sodium/Dextrose (Heparin 25,000 Units In D5w 500 Ml) 25,000 units in 500 mls @ 17.853 mls/hr IV TITRATE [facility]; Protocol Last Admin: 11/10/20 14:33 Dose: 16 units/kg/hr, 23.804 mls/hr Documented by: Morphine Sulfate (Morphine 2 Mg/Ml Syringe) 2 mg IVPUSH Q2H PRN PRN Reason: Pain (severe 7-10) Nicotine (Nicotine 21 Mg/24 Hr Patch) 21 mg TRDERM DAILY [facility] Last Admin: 11/10/20 08:50 Dose: 21 mg Documented by: Ondansetron HCl (Ondansetron 4 Mg/2 Ml Sdv) 4 mg IV Q4H PRN PRN Reason: Nausea/Vomiting Polyethylene Glycol (Polyethylene Glycol 3350 Powder 17 Gm Packet) 17 gm PO DAILY PRN PRN Reason: Constipation Rosuvastatin Calcium (Rosuvastatin 10 Mg Tab) 20 mg PO BEDTIME [facility] Last Admin: 11/09/20 20:49 Dose: 20 mg Documented by: Sodium Chloride (Sodium Chloride 0.9% 10 Ml Syringe) 10 ml FLUSH ASDIRECTED PRN PRN Reason: Keep Vein Open Ticagrelor (Ticagrelor 90 Mg Tab) 90 mg PO BID [facility] Last Admin: 11/10/20 08:49 Dose: 90 mg Documented by: Discontinued Medications Aspirin (Aspirin 81 Mg Tab.Chew) 324 mg PO ONETIME ONE Stop: 11/09/20 12:02 Last Admin: 11/09/20 12:39 Dose: 324 mg Documented by: Heparin Sodium (Porcine) (Heparin Sodium 5,000 Units/Ml Vial) 4,000 units IVPUSH ONETIME ONE Stop: 11/09/20 14:32 Last Admin: 11/09/20 15:03 Dose: 4,000 units Documented by: Heparin Sodium (Porcine) (Heparin Sodium 5,000 Units/Ml Vial) 1,000 units IVPUSH .BOLUS ONE Stop: 11/09/20 23:57 Last Admin: 11/10/20 00:09 Dose: 1,000 units Documented by: Heparin Sodium (Porcine) (Heparin Sodium 5,000 Units/Ml Vial) 1,000 units IVPUSH .BOLUS ONE Stop: 11/10/20 07:34 Last Admin: 11/10/20 07:44 Dose: 1,000 units Documented by: Morphine Sulfate (Morphine 4 Mg/Ml Syringe) 4 mg IVPUSH Q10M PRN PRN Reason: Chest Pain Stop: 11/10/20 12:01 Nitroglycerin (Nitroglycerin 0.4 Mg Tab.Sl) 0.4 mg SL Q5M PRN PRN Reason: Chest Pain Stop: 11/10/20 12:01 Ticagrelor (Ticagrelor 90 Mg Tab) 180 mg PO ONETIME ONE Stop: 11/09/20 14:32 Last Admin: 11/09/20 15:02 Dose: 180 mg Documented by: - Exam General: Reports: Alert, Oriented, Cooperative, No Acute Distress Lungs: Reports: Clear to Auscultation, Normal Respiratory Effort Cardiovascular: Reports: Regular Rate, Regular Rhythm, No Murmurs GI/Abdominal Exam: Soft, Non-Tender, No Organomegaly, No Distention *Q Meaningful Use (DIS) - VTE *Q VTE Pharmacological Contraindications *Q: High INR Value
[2020-11-10] MEDS: Metoprolol Tartrate 25 MG Tab PO SCH (17:51)
[2020-11-10] MEDS: Rosuvastatin 10 MG Tab PO SCH (21:39)
[2020-11-11] MEDS: LORazepam 2 MG/ML SDV IV SCH ×2 (02:45→12:13)
[2020-11-11] MEDS: Nicotine 21 MG/24 Hr Patch TRDERM SCH (08:20)
[2020-11-11] MEDS: Ticagrelor 90 MG Tab PO SCH (08:20)
[2020-11-11] MEDS: Aspirin 81 MG Tab.Chew PO SCH (08:21)
[2020-11-11] MEDS: Metoprolol Tartrate 25 MG Tab PO SCH (08:21)
[2020-11-11] MEDS: DULoxetine 30 MG Cap PO SCH (08:21)
[2020-11-11] MEDS: Heparin Sodium/D5W 25,000 UNITS/500 ML BAG IV SCH (12:05)
[2020-11-11] MEDS: Acetaminophen 325 MG Tab PO PRN (12:07)
[2020-11-11] MEDS ORDERED: Gabapentin 400 MG Cap PO SCH (14:00)
[2020-11-11] MEDS ORDERED: chlordiazePOXIDE 25 MG Cap PO SCH (14:00)
== END 2020-11-11 14:29 | DRG 281 ==
LOC: JP.ED 11:57 → JP.ICU 14:56
PROVIDERS: ADMIT Hospitalist; ATTEND Hospitalist
DX: I21.4 Non-ST elevation (NSTEMI) myocardial infarction (principal); F10.239 Alcohol dependence with withdrawal, unspecified; F17.210 Nicotine dependence, cigarettes, uncomplicated; F32.9 Major depressive disorder, single episode, unspecified; G43.909 Migraine, unspecified, not intractable, without status migrainosus; R25.1 Tremor, unspecified; H35.30 Unspecified macular degeneration; Z86.19 Personal history of other infectious and parasitic diseases; Z79.82 Long term (current) use of aspirin; Z79.899 Other long term (current) drug therapy; Z90.89 Acquired absence of other organs; Z20.822 Contact with and (suspected) exposure to COVID-19
CPT/HCPCS: 36415; 71045; 71045-26; 80048; 80053; 80061; 83735; 84484; 85025; 85610; 85730; 93005; 96374; 99285-25; A9270-GY; J1644; J2060; U0002

== ENCOUNTER → 2022-03-23 | Day surgery (SDC) | payer MEDICAID ==
[~2022-03-23] MED LIST: Sodium Chloride 0.9% 10 ML Syringe FLUSH PRN
== END ==
LOC: JP.SDS 08:15
PROVIDERS: ATTEND Ophthalmology
DX: H26.9 Unspecified cataract (principal); I10 Essential (primary) hypertension; E78.5 Hyperlipidemia, unspecified; K21.9 Gastro-esophageal reflux disease without esophagitis; I25.2 Old myocardial infarction; J44.9 Chronic obstructive pulmonary disease, unspecified
CPT/HCPCS: 66984; J3490